=== PATIENT | female | born 1970 | race Caucasian/White ===

== ENCOUNTER → 2025-01-27 | Day surgery (SDC) | payer BC ==
[~2025-01-27] MED LIST: Midazolam 1 MG/ML 2 ML SDV ONE; Propofol 200 MG/20 ML SDV ONE; Sodium Chloride 0.9% 10 ML Syringe FLUSH PRN
[2025-01-27] MEDS: Lactated Ringers 1,000 ML IV SCH (12:03)
== END ==
LOC: LL.SDS 10:59
PROVIDERS: ATTEND Surgery
DX: Z12.11 Encounter for screening for malignant neoplasm of colon (principal); R19.5 Other fecal abnormalities; D12.0 Benign neoplasm of cecum; Z87.891 Personal history of nicotine dependence
CPT/HCPCS: 00811; J2250; J2704; J7120